=== PATIENT | female | born 1985 ===

== ENCOUNTER 2018-02-18 23:21 | Inpatient (IN) | payer OTHER ==
--- NOTE | 2018-02-18 20:52 | ED PDOC ---
HPI: Female Pain Time Seen by Provider: 02/18/18 19:17 Chief Complaint (Nursing): Female Genitourinary Chief Complaint (Provider): Vaginal discharge History Per: Patient History/Exam Limitations: no limitations Onset/Duration Of Symptoms: Days (1 week) Current Symptoms Are (Timing): Still Present Additional History Per: Patient Additional Complaint(s): 32yo female, presents to ED for evaluation of vaginal discharge for the past week with associate pelvic pressure. Patient states upon urination today, she felt like something came out of her vagina and upon wiping, noted a "whitish glob with small streak of blood" on the paper. She denies any other discharge since then. She denies any nausea, vomiting, dysuria, or frequency. Patient states her LMP was on 12/16/17 and her menstrual cycle is always irregular; patient states she has never followed up with an OBGYN. She does admit to having unprotected sex since her LMP. She offers no other medical complaints. PMD: Dr. Duarte Last Menstral Period: 12/16/17 Past Medical History Reviewed: Historical Data, Nursing Documentation, Vital Signs Vital Signs: Last Vital Signs Temp 98.9 F 02/18/18 18:55 Pulse 106 H 02/18/18 18:55 Resp 16 02/18/18 18:55 BP 143/88 02/18/18 18:55 Pulse Ox 97 02/18/18 18:55 - Medical History PMH: Asthma - Surgical History Surgical History: No Surg Hx - Family History Family History: States: No Known Family Hx - Social History Current smoker - smoking cessation education provided: No Alcohol: Occasional Drugs: Denies - Home Medications Home Medications: Ambulatory Orders Medication Instructions Recorded Psyllium Husk [Daily Fiber] 1 cap PO DAILY 02/18/18 - Allergies Allergies/Adverse Reactions: Allergies Allergy/AdvReac Type Severity Reaction Status Date / Time No Known Allergies Allergy Verified 02/18/18 18:54 Review of Systems ROS Statement: Except As Marked, All Systems Reviewed And Found Negative (as per HPI) Gastrointestinal: Negative for: Nausea, Vomiting Genitourinary Female: Positive for: Vaginal Discharge, Pelvic Pain (pressure like pain). Negative for: Dysuria, Hematuria, Vaginal Bleeding Physical Exam - Reviewed Nursing Documentation Reviewed: Yes Vital Signs Reviewed: Yes - Physical Exam Appears: Positive for: Non-toxic (obese), No Acute Distress Head Exam: Positive for: ATRAUMATIC, NORMOCEPHALIC Skin: Positive for: Warm, Dry Eye Exam: Positive for: EOMI, PERRL ENT: Negative for: Pharyngeal Erythema, Tonsillar Exudate Neck: Positive for: Painless ROM, Supple Cardiovascular/Chest: Positive for: Regular Rate, Rhythm. Negative for: Murmur Respiratory: Positive for: Normal Breath Sounds. Negative for: Wheezing Gastrointestinal/Abdominal: Positive for: Tenderness (right pelvis tender to palpation). Negative for: Mass, Guarding, Rebound Back: Positive for: Normal Inspection. Negative for: Decreased ROM Extremity: Positive for: Normal ROM. Negative for: Deformity Lymphatic: Negative for: Adenopathy Neurologic/Psych: Positive for: Alert, Oriented. Negative for: Motor/Sensory Deficits - Laboratory Results Result Diagrams: 02/19/18 09:34 02/18/18 21:07 - ECG O2 Sat by Pulse Oximetry: 97 (RA) Pulse Ox Interpretation: Normal Medical Decision Making Medical Decision Making: Impression: Pelvic pain in early Differential: Including but not limited to threatened , UTI, ectopic , ovarian cyst, round ligament pain Plan: -- UPreg -- Labs -- US OB -- Chlamydia/GC RNA, TMA Preliminary US report: 17 week with open cervix, minimal amniotic fluid, fetus partially in cervical canal. Fetus demonstrates positive heartbeat. DW pt findings. 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 Large yellow brown membrane protruding into vaginal canal with brown mucoid discharge and copious amount of clear fluid. No bright red blood. KASHIF Delacruz community living specialist who advises pt to be evaluated in OB ED for active second trimester miscarriage. EXAM: US Uterus, Limited CLINICAL HISTORY: 32 years old, female; Pain; Other: Pelvic pain; Gestational age or lmp: Unknown ; ; Additional info: Early r pelvic pain TECHNIQUE: Real-time ultrasound of the maternal uterus (limited) with image documentation. COMPARISON: No relevant prior studies available. FINDINGS: Fetus: Single live intrauterine gestation. Fetus partially extending into cervical canal. Gestational age: Estimated gestational age of 17 weeks 5 days by measurements. EFW: Estimated weight of 215 g. Position: Breech. Heart rate: heart rate of 158 beats per minute. Placenta: Anterior placenta. No placenta previa or abruption. Amniotic fluid: Decreased. TONY = 2.7 cm. Cervix: Open cervix. Other findings: BPD: 3.9 cm, correlating with 18 weeks 0 days. HC: 13.6 cm, correlating with 17 weeks 0 days. AC: 11.7 cm, correlating with 17 weeks 3 days. FL: 2.8 cm, correlating with 18 weeks 4 days. IMPRESSION: 1. Single live intrauterine gestation. Open cervix with fetus partially extending into cervical canal. Oligohydramnios. THIS REPORT CONTAINS FINDINGS THAT MAY BE CRITICAL TO PATIENT CARE. The findings were verbally communicated via telephone conference with Thelma Mejia at 9:40 PM EDT on 02/18/2018. The findings were acknowledged and understood. Thank you for allowing us to participate in the care of your patient. Dictated and Authenticated by: Timo Garcia MD 02/18/2018 9:40 PM Eastern Time ([place] & [place]) DW pt plan of care. Stable for evaluation OB ED. Scribe Attestation: Documented by Vicky Raines, acting as a scribe for Thelma Saleh MD Provider Scribe Attestation: All medical record entries made by the Scribe were at my direction and personally dictated by me. I have reviewed the chart and agree that the record accurately reflects my personal performance of the history, physical exam, medical decision making, and the department course for this patient. I have also personally directed, reviewed, and agree with the discharge instructions and disposition. Disposition - Clinical Impression Clinical Impression: Inevitable spontaneous Counseled Patient/Family Regarding: Studies Performed, Diagnosis - Disposition Disposition Time: 21:30 Condition: FAIR
[2018-02-18 21:24] LABS: BASO # 0.1 K/uL (0.0-0.2); BASO % 0.6 % (0.0-2.0); EOS # 0.2 K/uL (0.0-0.7); EOS % 1.3 % (0.0-4.0); HEMOGLOBIN 12.2 g/dL (12.0-16.0); LYMPH # 1.9 K/uL (1.0-4.3); LYMPH % 12.4 % (20.0-40.0); MEAN CELL VOLUME 88.7 fl (81.0-99.0); MEAN CORPUSCULAR HEMOGLOBIN 30.1 pg (27.0-31.0); MEAN PLATELET VOLUME 8.5 fl (7.2-11.7); MONO # 0.8 K/uL (0.0-0.8); MONO % 5.2 % (0.0-10.0); NEUT % 80.5 % (50.0-75.0); RBC 4.04 Mil/uL (3.80-5.20); RED CELL DISTRIBUTION WIDTH 14.2 % (11.5-14.5); WHITE BLOOD COUNT 14.9 K/uL (4.8-10.8)
[2018-02-18 21:30] LABS: ALB/GLOB RATIO 0.9 (1.0-2.1); ALBUMIN 3.8 g/dL (3.5-5.0); ALT/SGPT 33 U/L (9-52); AST/SGOT 21 U/L (14-36); BLOOD UREA NITROGEN 8 mg/dl (7-17); CALCIUM 9.5 mg/dL (8.4-10.2); GFR AFRICAN-AMERICAN > 60; GFR NON-AFRICAN AMERICAN > 60
--- NOTE | 2018-02-18 21:40 | US ---
EXAM: US Uterus, Limited CLINICAL HISTORY: 32 years old, female; Pain; Other: Pelvic pain; Gestational age or lmp: Unknown; ; Additional info: Early r pelvic pain TECHNIQUE: Real-time ultrasound of the maternal uterus (limited) with image documentation. COMPARISON: No relevant prior studies available. FINDINGS: Fetus: Single live intrauterine gestation. Fetus partially extending into cervical canal. Gestational age: Estimated gestational age of 17 weeks 5 days by measurements. EFW: Estimated weight of 215 g. Position: Breech. Heart rate: heart rate of 158 beats per minute. Placenta: Anterior placenta. No placenta previa or abruption. Amniotic fluid: Decreased. TONY = 2.7 cm. Cervix: Open cervix. Other findings: BPD: 3.9 cm, correlating with 18 weeks 0 days. HC: 13.6 cm, correlating with 17 weeks 0 days. AC: 11.7 cm, correlating with 17 weeks 3 days. FL: 2.8 cm, correlating with 18 weeks 4 days. IMPRESSION: 1. Single live intrauterine gestation. Open cervix with fetus partially extending into cervical canal. Oligohydramnios. THIS REPORT CONTAINS FINDINGS THAT MAY BE CRITICAL TO PATIENT CARE. The findings were verbally communicated via telephone conference with Thelma Mejia at 9:40 PM EDT on 02/18/2018. The findings were acknowledged and understood.
[~2018-02-18 23:21] MED LIST: Lactated Ringer's 1,000 ML IV STA
[2018-02-19] MEDS ORDERED: AMPicillin 2 GM in Sodium Chloride 0.9% 100 ML IVPB ONE (00:15)
[2018-02-19] MEDS ORDERED: Lactated Ringer's 1,000 ML IV SCH ×2 (00:30→08:00)
[2018-02-19] MEDS ORDERED: Oxycodone/Acetaminophen 5/325 mg Tab PO PRN (00:51)
[2018-02-19] MEDS: Gentamicin 80mg/50ml NS 80 MG/50 ML BAG IVPB SCH ×2 (02:31→10:00)
[2018-02-19] MEDS ORDERED: AMPicillin 1 GM in Sodium Chloride 0.9% 100 ML IVPB SCH (05:00)
[2018-02-19] MEDS ORDERED: Succinylcholine 200 mg/10 ml Inj IV ONE (06:13)
[2018-02-19] MEDS ORDERED: Oxytocin 30 units/LR 500ML 30 UNITS/500 ML BAG IV ONE (06:31)
[2018-02-19] MEDS ORDERED: Dexamethasone 4 mg/1 ml ONE (06:43)
[2018-02-19] MEDS ORDERED: Propofol 10 mg/ml Inj (20 ML) ONE (06:56)
--- NOTE | 2018-02-19 07:37 | OBADHP ---
Datetime: 02/19/2018 01:09 IP Chief Complaint Other: pelvic discomfort IP Adm Impression Other: inevitable Admit Comment, IP Provider: 32 yo , admitted after eval in ED for pelvic pressure. Was found to have single intrauterine gestation, with open cervix with fetus partially extending into cervical can al, and oligohydramnios on obstetric u/s, estimated gestational age _17 wks. LMP 12/16/17. Pt states sh e did not know she was , as she has irregular cycle lasting 40-60 days and has sexual interco urse sporadically as per [place] lives [place] and she sees him every few months. No care; pt does not have an OBGYN and has never been to see one. ObGYNhx: menarche age 16, irregular q40-60 days. Never had PAP, never seen [employer] OPER[employer]. PMH: obesity,asthma Past Surg hx: superficial cyst removal from back, tummy tuck 3 yrs ago Meds: OTC allergy meds, ie. allerga Social hx: denies tobacco, alcohol, drug use (denies etoh during even though she did not know about ) Fam hx: diabetes Allergies: nkda SVE: 4cm A/P 32 yo , IUP at 17 weeks; inevitable . Admit to L_D Cytotec 200 mg vaginally Q6h PAin control with tylenol and percocet LR @ 125 ml/hr NPO 2gm ampicillin, followed by 1gQ4 80 mg gentamicin Q8 Zofran Expectant management. Pt seen/discussed w/ Dr. Delacruz. Addendum: I saw and examined patient up presentation. Patient with an inevitable with cervix 4 cm d ilated and gestational sac bulging beyond cervix. I discussed with patient findings and discussed wit h patient options including expected management or treatment with misoprostol. After discussion of op tions, patient opting for treatment with misoprostol. All patient questions answered. Patient admitte d for management. Nubia Extremities - PN: Normal Abdomen - PN: Normal Lungs - PN: Normal HEENT - PN: Normal General - PN: Normal IP Chief Complaint: Maternal discomfort; Other Dilatation, Provider: 4 Genitourinary Exam: Normal IP Adm Impression: , intrauterine IP Admit Plan: Admit to unit
--- NOTE | 2018-02-19 07:44 | OBPN ---
Datetime: 02/19/2018 07:36 IP Progress Note Comment: Patient spontaneously passed fetus. No movement, no heart beat . Placenta retained in the uterus. On sterile speculum exam, cervix found to be bleeding. Attempt at removal of placenta in room unsuccessful. Due to continued bleeding, decision made to transfer patien t to operating room for exam under anesthesia and removal of placenta. Patient consented for anesthes ia, removal of placenta, D_C. I discussed with patient the risks, benefits, alternatives of procedure and all patient questions answered. In operating room, placenta removed under direct visualization with ring forcep. With banjo curet, uterine wall gently curetted. Patient given 1 dose of Methergine IM and given 600 g of misoprosto l rectally. After removal of placenta, cervix found to be hemostatic. Uterus firm and appropriately h emostatic. Estimated blood loss 800 mL. IV fluids 1200 mL lactated Ringer's. Urine output 300 mL of c lear urine at the end of procedure. Patient taken to recovery room awake and stable condition. Datetime: 02/19/2018 01:09 Dilatation, Provider: 4
[2018-02-19 10:06] LABS: BASO % 0.2 % (0.0-2.0); EOS % 0.1 % (0.0-4.0); LYMPH # 1.2 K/uL (1.0-4.3); LYMPH % 4.9 % (20.0-40.0); MEAN CELL VOLUME 88.7 fl (81.0-99.0); MEAN CORPUSCULAR HEMOGLOBIN 29.7 pg (27.0-31.0); MEAN CORPUSCULAR HGB CONC 33.5 g/dL (33.0-37.0); MEAN PLATELET VOLUME 8.6 fl (7.2-11.7); MONO # 0.5 K/uL (0.0-0.8); MONO % 2.1 % (0.0-10.0); NEUT # 22.4 K/uL (1.8-7.0); NEUT % 92.7 % (50.0-75.0); PLATELET COUNT 306 K/uL (130-400); RBC 3.71 Mil/uL (3.80-5.20); RED CELL DISTRIBUTION WIDTH 14.1 % (11.5-14.5); WHITE BLOOD COUNT 24.1 K/uL (4.8-10.8)
[2018-02-19 12:13] LABS: BANDS 5 % (0-2); LYMPHOCYTE 5 % (20-50); MONOCYTE 2 % (0-10); NEUTROPHIL 88 % (42-75); PLATELET ESTIMATE NORMAL (NORMAL); TOTAL CELLS COUNTED 100
[2018-02-19 12:14] LABS: ANISOCYTOSIS SLIGHT
--- NOTE | 2018-02-19 14:41 | OBPPN ---
Datetime: 02/19/2018 14:37 PP Pain Prov: Within normal limits PP Nausea Prov: Denies PP Flatus Prov: Yes PP Breasts Prov: Not Done PP Heart Prov: Normal PP Lungs Prov: Normal PP Abdomen/Uterus Prov: Normal PP Lochia Prov: Not Done PP Vulva/Perineum Prov: Not Done PP CVA Tenderness Prov: Normal PP Extremities Prov: Normal PP Progress Note Prov: Patient reports minimal lochia reports some cramping patients that she would like to go home Vital signs stable afebrile Uterus firm below the umbilicus Complete Social service consult Patient to be discharged Follow-up PMD Vital Signs Provider PP: Reviewed
[2018-02-19 15:50] LABS: BASO # 0.1 K/uL (0.0-0.2); BASO % 0.4 % (0.0-2.0); HEMOGLOBIN 10.6 g/dL (12.0-16.0); LYMPH # 1.5 K/uL (1.0-4.3); LYMPH % 5.9 % (20.0-40.0); MEAN CELL VOLUME 88.9 fl (81.0-99.0); MEAN CORPUSCULAR HEMOGLOBIN 30.3 pg (27.0-31.0); MEAN CORPUSCULAR HGB CONC 34.1 g/dL (33.0-37.0); MEAN PLATELET VOLUME 8.3 fl (7.2-11.7); NEUT # 22.2 K/uL (1.8-7.0); NEUT % 89.7 % (50.0-75.0); RBC 3.49 Mil/uL (3.80-5.20); RED CELL DISTRIBUTION WIDTH 14.4 % (11.5-14.5); WHITE BLOOD COUNT 24.7 K/uL (4.8-10.8)
[2018-02-20 15:28] VITALS: BP 108/68; PULSE 99; RESP 18; TEMP 98.3; O2SAT 100
== END 2018-02-19 17:00 | disposition home or self-care (01) | DRG 381 ==
LOC: H.EROB2 23:21 → H.L&D 02-19 00:05
PROVIDERS: ADMIT Obstetrics & Gynecology; ATTEND Obstetrics & Gynecology
PROC: 10A07ZZ Abortion of Products of Conception, Via Natural or Artificial Opening (ICD-10-PCS; principal; 2018-02-19)
DX: O03.9 Complete or unspecified spontaneous abortion without complication (principal); Z3A.17 17 weeks gestation of pregnancy; O41.02X0 Oligohydramnios, second trimester, not applicable or unspecified; J45.909 Unspecified asthma, uncomplicated; O99.52 Diseases of the respiratory system complicating childbirth